=== PATIENT | female | born 1935 | race Caucasian/White ===

== ENCOUNTER 2019-09-27 06:36 | Day surgery (SDC) | payer OTHER ==
[~2019-09-27] VITALS: Ht 160 cm; Wt 55.8 kg
[~2019-09-27 06:36] MED LIST: BENAZEPRIL HCL40 MG PO; LIPITOR80 MG PO; NORVASC5 M1 PO; ULTRAM 50MG TAB50 MG PO
[2019-09-27 07:21] VITALS: BP 147/92
== END 2019-09-27 11:05 | disposition home or self-care (01) ==
LOC: OR 06:36 → TBA 07:06 → OR 11:05
DX: M96.1 Postlaminectomy syndrome, not elsewhere classified (principal); I10 Essential (primary) hypertension; E78.00 Pure hypercholesterolemia, unspecified; M19.90 Unspecified osteoarthritis, unspecified site; Z98.890 Other specified postprocedural states; Z79.899 Other long term (current) drug therapy; Z90.49 Acquired absence of other specified parts of digestive tract; Z85.828 Personal history of other malignant neoplasm of skin; Z87.19 Personal history of other diseases of the digestive system; Z85.43 Personal history of malignant neoplasm of ovary; Z86.73 Personal history of transient ischemic attack (TIA), and cerebral infarction without residual deficits
CPT/HCPCS: 50010; 50101; 50386; 50417; 56524; 56526; 56528; 57196; 57197; 57198; 57199; 57200; 57201; 57430; 62110; 62850; 70005